=== PATIENT | male | born 1980 | race Caucasian/White ===

== ENCOUNTER → 2017-12-16 | Outpatient (CLI) | payer BC | LOC: SLEEPLAB 11:06 | PROVIDERS: ATTEND Family Medicine | DX: G47.33 Obstructive sleep apnea (adult) (pediatric) (principal); R53.83 Other fatigue; E66.9 Obesity, unspecified; I10 Essential (primary) hypertension; G47.00 Insomnia, unspecified; G47.10 Hypersomnia, unspecified; Z68.41 Body mass index [BMI] 40.0-44.9, adult | CPT/HCPCS: 95811 ==

== ENCOUNTER 2018-02-01 09:06 | Outpatient (CLI) | payer BC ==
--- NOTE | 2018-02-01 15:09 | CT ---
CT ABDOMEN AND PELVIS WITH IV CONTRAST: Date: 02-01-18 History: Abdominal pain and diarrhea. Patient complains of left lower quadrant abdominal pain. Comparison: None available. FINDINGS: The lung bases are clear. The liver demonstrates diminished attenuation which can be seen with fatty infiltration, but contrast imaging was not obtained for more adequate evaluation. Liver is otherwise normal in appearance. The spleen is enlarged measuring 15.3 cm in craniocaudal dimensions. The pancreas, bilateral adrenal glands, kidneys, abdominal aorta and urinary bladder demonstrate a no rmal CT appearance. The opacified bowel is normal in appearance. No dilated loops of small bowel are present. The appendix is visualized and normal in caliber. There is mild haziness of the central mesentery with increase in number of lymph nodes, but no enlarg ed lymph nodes are seen by CT size criteria. No free fluid, fluid collection or lymphadenopathy is se en in the abdomen or pelvis. Small fat containing umbilical hernia is present. There is a retroaortic left renal vein incidentally noted. IMPRESSION: 1. Mild haziness of the central mesentery. This is overall nonspecific. No enlarged lymph nodes are s een; although, mild increase in number of lymph nodes are present. Findings could be related to mesen teric panniculitis. 2. Splenomegaly. The liver is also enlarged in craniocaudal dimensions measuring approximately [address] evidence of appendicitis. POS: [facility]
== END 2018-02-01 09:07 | disposition home or self-care (01) ==
LOC: SCSCT 09:06
PROVIDERS: ATTEND Family Medicine
DX: R10.32 Left lower quadrant pain (principal); R16.2 Hepatomegaly with splenomegaly, not elsewhere classified
CPT/HCPCS: 74177

== ENCOUNTER 2018-02-18 04:59 | Emergency (ER) | payer BC ==
[2018-02-18 05:44] LABS: #Basophils 0.1 thou/uL (0.0-0.2); #Eosinphils 0.1 thou/uL (0.0-0.7); #Lymphocytes 1.9 thou/uL (1.20-3.40); #Monocytes 0.7 thou/uL (0.11-0.59); %Eosinophils 1.1 % (0.0-10.0); %Lymphocytes 19.6 % (21.0-51.0); %Monocytes 7.1 % (0.0-10.0); %Neutrophils 71.2 % (42.0-75.0); Hemoglobin 17.4 g/dL (14.0-18.0); Mean Corpuscular Hemoglobin 31.7 pg (27.0-31.0); Mean Corpuscular Volume 88.1 fL (78.0-98.0); Mean Platelet Volume 8.3 fL (7.4-10.4); Platelet Count 254 thou/uL (130-400); Red Blood Cell (RBC) Count 5.49 mill/uL (4.70-6.10); White Blood Cell (WBC) Count 9.8 thou/uL (4.8-10.8)
[2018-02-18 05:50] LABS: ALT (SGPT) 48 U/L (8-55); AST (SGOT) 24 U/L (5-34); Albumin 4.5 g/dL (3.5-5.0); Alkaline Phosphatase 80 U/L (40-150); Anion Gap 12 mmol/L (10-20); BUN (Urea Nitrogen) 15 mg/dL (8.9-20.6); Bilirubin, Total 1.1 mg/dL (0.2-1.2); Calc. Creatinine Clearance 0 mL/min (70-130); Calcium 9.5 mg/dL (7.8-10.44); Carbon Dioxide 26 mmol/L (22-29); Chloride 105 mmol/L (98-107); Estimated GFR-MDRD Greater than 90; Globulin 2.7 g/dL (2.4-3.5); Glucose 97 mg/dL (70-105); Lipase 23 U/L (8-78); Potassium 4.1 mmol/L (3.5-5.1); Protein, Total 7.2 g/dL (6.0-8.3); Sodium 139 mmol/L (136-145)
[2018-02-18 06:04] LABS: Bilirubin Negative (Negative); Blood, Urine Moderate (Negative); Clarity Clear (Clear); Glucose, Urine (Dipstick) Negative (Negative); Leukocyte Negative (Negative); Nitrite Negative (Negative); Protein, Urine (Dipstick) Negative (Neg-Trace); Specific Gravity, Urine 1.025 (1.005-1.030); Urobilinogen 0.2 mg/dL (0.2-1.0); pH, Urine 5.5 (5.0-9.0)
[2018-02-18 06:07] LABS: Bacteria/HPF None Seen HPF (None Seen); Hyaline Casts/LPF 0-3 HYALINE CAST LPF (0-3 Hyaline); Squamous Epithelial 0-3 HPF (0-3); WBC/HPF 0-3 HPF (0-3)
--- NOTE | 2018-02-18 08:08 | CT ---
PRELIMINARY REPORT/[facility]/EMERGENTY AFTER-HOURS PROCEDURE CT Abdomen and Pelvis Without Intravenous Contrast EXAM DATE/TIME: Exam ordered 02/18/2018 5:36 AM CLINICAL HISTORY: 38 years old, male; Pain; Abdominal pain; Patient HX: Rectal pain "after a few bowel movements", burn ing with urination onset yesterday morning; Nausea, no vomiting, left sided torso pain ; poss HX of a maria guadalupe reflux. TECHNIQUE: Axial computed tomography images of the abdomen and pelvis without intravenous contrast. Coronal refo rmatted images were created and reviewed. COMPARISON: No relevant prior studies available. FINDINGS: Lung bases: The visualized portions of the lung bases are normal. ABDOMEN: Liver: The liver is within normal limits for this noncontrast study. Gallbladder and bile ducts: Questionable gallbladder wall haziness. No calcified stones. No ductal di lation. Pancreas: The pancreas appears normal. No ductal dilation. Spleen: The spleen is normal. Adrenals: The adrenal glands are normal. Kidneys and ureters: The kidneys appear normal. No obstructing stones. No hydronephrosis. Stomach and bowel: The colon is normal. No obstruction. No mucosal thickening. PELVIS: Appendix: A normal appendix is identified. Bladder: The bladder is normal. No stones. Reproductive: The prostate gland and seminal vesicles are normal. ABDOMEN and PELVIS: Intraperitoneal space: Normal. No free air. No significant fluid collection. Bones/joints: No acute fracture. No dislocation. Soft tissues: Normal. Vasculature: Normal. No abdominal aortic aneurysm. Lymph nodes: Normal. No enlarged lymph nodes. IMPRESSION: 1. No definite acute abdominal pelvic pathology. 2. Questionable gallbladder wall haziness. If acute cholecystitis is suspected, RIGHT upper quadrant ultrasound may be helpful. Thank you for allowing us to participate in the care of your patient. Dictated and Authenticated by: Lebron Ibarra MD 02/18/2018 5:45 AM Central Time ([place] & [place]) FINAL REPORT ABDOMEN AND PELVIC CT SCAN WITHOUT IV CONTRAST EMERGENCY AFTER HOURS EXAM TIME: 5:38 a.m. DATE: 02/17/18. FINDINGS/IMPRESSION: Minimal fat stranding in the central mesentery. No other significant acute process. POS: [facility]
== END 2018-02-18 06:12 | disposition home or self-care (01) ==
LOC: SCSER 04:59
DX: R10.32 Left lower quadrant pain (principal); R30.0 Dysuria; I10 Essential (primary) hypertension; K21.9 Gastro-esophageal reflux disease without esophagitis; Z79.899 Other long term (current) drug therapy
CPT/HCPCS: 74176; 80053; 81003; 81015; 82274; 83690; 85025